=== PATIENT | female | born 1990 | race Asian ===

== ENCOUNTER 2020-11-11 05:16 | Emergency (ER) | payer OTHER ==
[~2020-11-11] VITALS: Ht 167.6 cm; Wt 114.3 kg
[2020-11-11 05:22] VITALS: BP 121/96; TEMP 98.9
[2020-11-11] MEDS ORDERED: BIRTH CONTROL PILLS PO (05:44)
[2020-11-11 06:40] LABS: PLATELET COUNT 292 K/uL (152-353)
[2020-11-11 06:48] LABS: POTASSIUM 4.1 mmol/L (3.6-5.2)
== END 2020-11-11 07:38 | disposition home or self-care (01) ==
LOC: ED 05:16
PROVIDERS: Emergency Medicine
DX: R10.31 Right lower quadrant pain (principal); F60.4 Histrionic personality disorder
CPT/HCPCS: 80053; 80307; 81000; 81025; 82150; 83690; 85027; 96372; 96374; 96375; 99284; J2060; J2175; J2405